=== PATIENT | female | born 1995 | race Caucasian/White ===

== ENCOUNTER 2017-05-30 21:35 | Emergency (ER) | payer OTHER ==
[~2017-05-30] VITALS: Ht 162.6 cm; Wt 65.5 kg
[2017-05-30 21:38] VITALS: Ht 162.6 cm; Wt 65.5 kg
[2017-05-30] MEDS ORDERED: SULF1TAB31 PO (22:29)
[2017-05-30] MEDS ORDERED: CEPH-443 PO (22:29)
--- NOTE | 2017-05-30 22:37 | ERA ---
ER Documentation Chief Complaint Date/Time DATE: 05/30/17 TIME: 22:33 Chief Complaint left breast pain feels " lump" on left breast HPI This is a 21-year-old otherwise healthy female presenting with a chief complaint of painful left nipple. Patient noticed a painful nodule on the superior aspect of the left areola this morning. Patient has no other complaints. Denies all other symptoms. ROS All systems reviewed and are negative except as per history of present illness. Medications Home Meds Active Scripts Cephalexin* (Keflex*) 500 Mg Capsule, 500 MG PO QID for 5 Days, CAP Prov:LB ONEAL PA-C 05/30/17 Sulfamethoxazole/Trimethoprim* (Bactrim Ds* Tablet) 1 Each Tablet, 1 TAB PO BID , #14 TAB Prov:LB ONEAL PA-C 05/30/17 Allergies Allergies: Coded Allergies: No Known Allergy (Unverified , 02/04/14) PMhx/Soc History of Surgery: No Anesthesia Reaction: No Hx Neurological Disorder: No Hx Respiratory Disorders: No Hx Cardiac Disorders: No Hx Psychiatric Problems: No Hx Miscellaneous Medical Probl: No Hx Alcohol Use: No Hx Substance Use: No Hx Tobacco Use: No Smoking Status: Never smoker Physical Exam Vitals Vital Signs Date Time Temp Pulse Resp B/P Pulse Ox O2 Delivery O2 Flow Rate FiO2 05/30/17 21:38 98.3 85 20 127/71 98 Physical Exam Const: Well-appearing, overweight 21-year-old female no acute distress Head: Atraumatic Eyes: Normal Conjunctiva ENT: Normal External Ears, Nose and Mouth. Neck: Full range of motion..~ No meningismus. Resp: Clear to auscultation bilaterally Cardio: Regular rate and rhythm, no murmurs Abd: Soft, non tender, non distended. Normal bowel sounds Skin: 1 cm indurated, tender subcutaneous nodule felt without fluctuance on the superior aspect of the areola of the left breast. No petechiae or rashes Back: No midline or flank tenderness Ext: No cyanosis, or edema Neur: Awake and alert Psych: Normal Mood and Affect Procedures/MDM Patient is presenting with an indurated slightly tender left breast nodule on the superior aspect of the areola. Denies discharge. At this time I very little suspicion for abscess. There is no fluctuance. Very little suspicion for cancer. Most likely diagnosis is superficial cellulitis versus fibrocystic disease versus fibroadenoma. Patient will be discharged with antibiotics and instructed to follow-up with PCP or [facility] TECHNICIAN within the next 1-3 days for further evaluation. Patient is verbally responded that she understands her current condition and treatment plan. Label Paster was the RN [place]. Departure Diagnosis: Primary Impression: Cellulitis of left breast Additional Impressions: Fibroadenoma of left breast Breast pain Condition: Stable Patient Instructions: Breast Self-Exam (BSE), Fibrocystic Breast Disease, Presumed Additional Instructions: Follow up with your PCP within the next 1-3 days for a more thorough evaluation and a possible referral to a specialist. Return the the emergency department immediately if symptoms worsen or change. If you have any questions regarding medications, ask your pharmacist or us before you leave. If any adverse reactions occur while taking your medications, discontinue the treatment and return to the emergency department immediately. Take your medications as directed, and complete the entire course of treatment. LB ONEAL PA-C May 30, 2017 22:36
== END 2017-05-30 22:51 | disposition home or self-care (01) ==
LOC: FTE 21:35
DX: N61.0 Mastitis without abscess (principal); D24.2 Benign neoplasm of left breast
CPT/HCPCS: 99284